=== PATIENT | male | born 1990 | race Caucasian/White ===

== ENCOUNTER 2025-11-14 08:56 | Emergency (ER) | payer MEDICAID ==
[~2025-11-14] VITALS: Ht 188 cm; Wt 81.1 kg
[2025-11-14] MEDS: ondansetron 4mg rapidly disintigrating tab PO ONE (11:16)
[2025-11-14] MEDS ORDERED: BENZ-38 PO (11:47)
[2025-11-14] MEDS ORDERED: ONDA-243 PO (11:47)
--- NOTE | 2025-11-14 11:47 | Physician Documentation ---
History of Present Illness ~ Chief Complaint: Flu Symptoms Stated Complaint: FLU SYMPTOMS Time Seen by MD: 10:32 HPI 35-year-old male presents to the ED with a complaint of two days of nausea vomiting and diarrhea and a cough. States he has had the chills as well. Says he is is able to hold down water without difficulty but is unable to hold any food down. Feels current nausea ,says he also feels moderately dehydrated Day of Onset: Nov 14, 2025 Medication Reconciliation Allergies: Coded Allergies: No Known Allergies (Unverified , 11/14/25) Scheduled Benzonatate* (Benzonatate*), 1 CAP PO Q8H Scheduled PRN ONDANSETRON ODT 4mg tablet (Ondansetron Odt), 1 TAB PO Q6H PRN PRN for nausea/vomiting Review of Systems All Other Systems at this time: Reviewed and Negative ROS General: Alert, no apparent distress. HEENT: PERRL, EOMI, no injection, moist mucous membranes. Neck: Full range of motion. Respiratory: Lungs clear, no respiratory distress. Chest: No accessory muscle use. Cardiovascular: Regular rate and rhythm, no murmurs. Gastrointestinal: Soft, nontender, nondistended. Bowels sounds present. Extremities: Normal range of motion, no deformity. Neurologic: Oriented x4. Psychiatric: Normal mood and affect. Skin: Normal color, warm and dry. No edema, no ecchymosis. Physical Exam Vital Signs: Temperature: 98.3, Source: Oral, Heart Rate: 89, Respiratory Rate: 18, BP: 119/75, Pulse Oximetry: 98, Weight: 81.100 Oxygen Flow Rate: 0 Physical Exam General: Alert, no apparent distress. HEENT: PERRL, EOMI, no injection, moist mucous membranes. Neck: Full range of motion. Respiratory: Lungs clear, no respiratory distress. Chest: No accessory muscle use. Cardiovascular: Regular rate and rhythm, no murmurs. Gastrointestinal: Soft, nontender, nondistended. Bowels sounds present. Extremities: Normal range of motion, no deformity. Neurologic: Oriented x4. Psychiatric: Normal mood and affect. Skin: Normal color, warm and dry. No edema, no ecchymosis. Progress Results/Orders Results/Orders Orders - MICKY SILVERIO TURNER IN General Nursing Order (11/14/25 ) Completed Orders - MICKY SILVERIO TURNER IN Ondansetron Disint. Tablet (Zofran Odt T (11/14/25 11:15) Medications Received in ER Medications (Trade) Dose Ordered Sig/Quiana Route PRN Reason Start Time Stop Time Status Last Admin Dose Admin (Zofran ODT tablet) 4 mg ONCE ONCE PO 11/14/25 11:15 11/14/25 11:16 DC 11/14/25 11:16 4 MG Vital Signs 11/14/25 11/14/25 09:16 12:35 Temp 98.3 98.3 Pulse 89 57 Resp 18 17 B/P (MAP) 119/75 114/70 Pulse Ox 98 96 O2 Flow Rate 0 Medical Decision Making Additional information obtaine: old records Findings Patient presents with the clinical symptoms for a viral gastroenteritis and/or flu. He does not present acutely ill at this point treating his symptoms are my best option. Going to send him home with Tessalon Perles and and Zofran device to maintain electrolyte balance Differential Dx:Considerations: Include: CVA, Dehydration, Drug toxicity, Electrolyte imbalance, Influenza, Meningitis, Mycardial infarction, Pneumonia, Pneumonitis, Pulmonary embolus, Pyelonephritis, Respiratory failure, Sepsis, UTI, Viral Syndrome, Other Departure Disposition: 01 HOME / SELF CARE / HOMELESS Impression: Primary Impression: Influenza Additional Impression: Viral infection Condition: Stable Discharge Instructions: Influenza, Adult, Viral Illness Additional Instructions: Maintain adequate hydration with Pedialyte or Gatorade he has Zofran for nausea. Referrals: NO PRIMARY CARE PROVIDER (PCP) Prescriptions ONDANSETRON ODT 4mg tablet (ONDANSETRON ODT) 4 Mg Tab.rapdis 1 TAB PO Q6H PRN PRN for nausea/vomiting for 4 Days, #16 TAB 0 Refills Prov: MICKY SILVERIO NP 11/14/25 Benzonatate* (Benzonatate*) 100 Mg Capsule 1 CAP PO Q8H for cough for 10 Days, #30 CAP Prov: MICKY SILVERIO TURNER IN 11/14/25 Signature Scribe Signature: g Attestation: Scribed for Micky Silverio [employer] by Micky Silverio - IRVIN . 11/14/25 15:00 MICKY SILVERIO TURNER IN Nov 14, 2025 11:47
[2025-11-14 12:35] VITALS: BP 114/70; PULSE 57; RESP 17; TEMP 98.3; O2SAT 96
== END 2025-11-14 12:42 | disposition home or self-care (01) ==
LOC: ER 08:57
DX: J11.1 Influenza due to unidentified influenza virus with other respiratory manifestations (principal); B34.9 Viral infection, unspecified; E86.0 Dehydration
CPT/HCPCS: 99283